=== PATIENT | female | born 1985 | race Caucasian/White ===

== ENCOUNTER 2018-03-05 05:18 | Inpatient (IN) | END 2018-03-09 14:45 | disposition home or self-care (01) | DRG 445 ==

== ENCOUNTER 2019-06-16 00:34 | Emergency (ER) | payer OTHER ==
[~2019-06-16] VITALS: Ht 162.6 cm; Wt 84.3 kg
[~2019-06-16 00:34] MED LIST: ALBU8.5H8; BEN25 PO; HC30CR25 TOP; HYDR-4011 PO; ONDA4TAB14 PO; PANT40TA4 PO; POLY17PO6 PO
[2019-06-16 00:38] VITALS: Ht 162.6 cm; Wt 84.3 kg
[2019-06-16 01:15] VITALS: BP 106/63; PULSE 93; RESP 15
[2019-06-16] MEDS ORDERED: DIPHENHYDRAMINE 50 MG CAP PO ONE (01:30)
== END 2019-06-16 01:15 | disposition home or self-care (01) ==
LOC: FTE 00:34
DX: L29.9 Pruritus, unspecified (principal)
CPT/HCPCS: 99283